=== PATIENT | female | born 1940 | race Caucasian/White ===

== ENCOUNTER 2016-10-19 10:36 | Emergency (ER) | payer OTHER ==
[2016-10-19] MEDS ORDERED: LORazepam 2 MG/ML INJ IVP ONE (11:13)
--- NOTE | 2016-10-19 12:41 | EDPHY ---
H & P Stated Complaint: Panic attack-history 3 years ago feels RT back pain. - Personal History Current Tetanus/Diphtheria Vaccine: Unsure Current Tetanus Diphtheria and Acellular Pertussis (TDAP): Unsure - Medical/Surgical History Hx Asthma: No Hx Chronic Respiratory Disease: No Hx Diabetes: No Hx Cardiac Disease: Yes Hx Renal Disease: No Hx Cirrhosis: No Hx Alcoholism: No Hx HIV/AIDS: No Hx Splenectomy or Spleen Trauma: No Other PMH: HTN, hypothyroid, hyperlipidemia, GERD. HYST, HERNIA REPAIR. C6-7 NECK INJECTIONS - Social History Smoking Status: Former smoker Time Seen by Provider: 10/19/16 10:56 HPI/ROS: Chief complaint: Anxiety attack History of present illness: This is a 76-year-old female, accompanied by her to the emergency department for evaluation of an anxiety attack. Patient reports she has a history of anxiety. She has been suffering from it for the last 3 years. She has been on multiple treatments but states she will still get anxiety. She reports increasing anxiety over the last week. She is taking her sertraline and alprazolam as prescribed. She denies specific precipitating factors. She denies alleviating factors. She denies other associated signs or symptoms including no fevers, no cold symptoms, no chest pain, no shortness of breath or cough, no pain or swelling in the legs. Again she has a history of anxiety and states this feels similar. Review of systems: A 10 point review of systems was obtained and other than described above was negative (Jesus Serna) - Physical Exam Exam: General Appearance: Alert, appears anxious and is crying in the room. Eyes: Pupils equal and round no injection. Respiratory: Chest is nontender, lungs are clear to auscultation. Cardiac: regular rate and rhythm. Gastrointestinal: Abdomen is soft and nontender, no masses, bowel sounds normal. Musculoskeletal: Neck is supple and nontender. Extremities have full range of motion and are nontender. Skin: No rashes or lesions. Neurological: Alert and oriented x4. Cranial nerves 2-12 grossly intact. Strength and sensation intact and symmetrical. (Jesus Serna) Constitutional: Initial Vital Signs Temperature (C) 36.3 C 10/19/16 10:39 Heart Rate 65 10/19/16 10:39 Respiratory Rate 18 10/19/16 10:39 Blood Pressure 125/82 H 10/19/16 10:39 O2 Sat (%) 98 10/19/16 10:39 O2 Delivery Mode Room Air Allergies/Adverse Reactions: No Known Allergies Allergy (Verified 10/19/16 10:43) Home Medications: Medication Instructions Recorded Levothyroxine [Synthroid 25 mcg 10/28/13 (*)] Ondansetron Odt [Zofran Odt 4 mg 4 mg PO Q4 PRN #10 tab 11/19/13 (RX)] Celexa 12/14/13 Alprazolam 10/19/16 Ibuprofen 10/19/16 Tramadol HCl 10/19/16 Medical Decision Making ED Course/Re-evaluation: Patient discussed with my secondary supervising physician Dr. Kimmie Martin. Patient presents to the emergency department for anxiety. She reports a history of anxiety and this is typical in nature. No current suicidal or homicidal ideation. She is currently treated with sertraline and alprazolam but this is not controlling her current symptoms completely. On presentation patient is nontoxic but does appear extremely anxious and is crying. Vital signs are stable. She is treated with IV Ativan and Benadryl and is able to sleep in the emergency department, on re-evaluation she is feeling much better. She does have an appointment with her primary care doctor this . I have asked her to keep this appointment to discuss further treatment. Return precautions are given. Patient voiced understanding and agreement with plan. (Jesus Serna) This patient was primarily evaluated and managed by the physician assistant designer. I an the secondary supervising physician. I agree with the plan of care. (Kimmie Martin) - Data Points Medications Given: Discontinued Medications Diphenhydramine HCl (Benadryl Injection) 25 mg IVP EDNOW ONE Stop: 10/19/16 11:14 Last Admin: 10/19/16 11:39 Dose: 25 mg Lorazepam (Ativan Injection) 1 mg IVP EDNOW ONE Stop: 10/19/16 11:14 Last Admin: 10/19/16 11:39 Dose: 1 mg Departure - Departure Disposition: Home, Routine, Self-Care Clinical Impression: Anxiety Condition: Good Instructions: Anxiety (ED) Additional Instructions: Follow-up with your primary care doctor this week as scheduled Talk to her about being referred to a psychiatrist If symptoms worsen or new symptoms develop return to the emergency room for recheck Referrals: Kathleen Lopez MD [Primary Care Provider] - As per Instructions
[2016-10-19 13:49] VITALS: BP 126/74; PULSE 68; RESP 16; TEMP 97.5; O2SAT 98
== END 2016-10-19 13:48 | disposition home or self-care (01) ==
DX: F41.9 Anxiety disorder, unspecified (principal); I10 Essential (primary) hypertension; Z87.891 Personal history of nicotine dependence
CPT/HCPCS: 96374; 96375; 99284; J1200; J2060

== ENCOUNTER → 2017-11-21 | Outpatient (CLI) | payer OTHER | LOC: CIMAGING 14:12 | PROVIDERS: ATTEND Internal Medicine | DX: Z12.31 Encounter for screening mammogram for malignant neoplasm of breast (principal) ==

== ENCOUNTER → 2018-12-14 | Outpatient (CLI) | payer OTHER | LOC: CIMAGING 11:07 | PROVIDERS: ATTEND Internal Medicine | DX: Z12.31 Encounter for screening mammogram for malignant neoplasm of breast (principal) ==